=== PATIENT | male | born 1980 | race Caucasian/White ===

== ENCOUNTER 2019-01-27 20:34 | Emergency (ER) | payer SELFPAY ==
[2019-01-27 21:30] LABS: Absolute Lymphocytes (CBC) 2.6 K/uL (0.7-4.9); Absolute Monocytes 0.8 K/uL (0.1-1.3); Absolute Neutrophil 9.2 K/uL (1.8-8.0); Basophils % 0.6 % (0-1.3); Hematocrit 42.8 % (39.6-49.0); Lymphocytes % 20.2 % (15.3-44.8); MPV 9.5 fL (7.6-11.3); Monocytes % 6.1 % (3.3-12.3); RBC Red Blood Cell Count 4.83 M/uL (4.33-5.43)
[2019-01-27] MEDS ORDERED: ONDANSETRON 4 MG/2 ML VIAL ONE (21:31)
[2019-01-27] MEDS ORDERED: KETOROLAC 30 MG/ML INJ ONE (21:31)
[2019-01-27] MEDS ORDERED: NA CHLORIDE 0.9% 1,000 ML ONE (21:31)
[2019-01-27 21:53] LABS: Bilirubin Direct 0.1 mg/dL (0-0.2); Bilirubin Total 0.4 mg/dL (0.2-1.0); Potassium 3.5 mmol/L (3.5-5.1); Protein, Total 7.7 g/dL (6.4-8.2)
--- NOTE | 2019-01-27 22:39 | EDPHYS ---
Physician Documentation [facility] Name: Akira Miller Age: 39 yrs Sex: Male : 1980 Arrival Date: 01/27/2019 Time: 20:36 Bed 14 Private MD: ED Physician Stephane Leon HPI: 01/27 21:01 This 39 yrs old Male presents to ER via Wheelchair with complaints of Abdominal Pain. cp 21:01 The patient presents with abdominal pain right side. Onset: The symptoms/episode cp began/occurred suddenly, 3 hour(s) ago. The symptoms radiate to right back. Associated signs and symptoms: Pertinent positives: nausea, Pertinent negatives: blood in stools, chest pain, fever, testicular pain, vomiting. The symptoms are described as stabbing. Modifying factors: the symptoms are aggravated by pressure. Historical: - Allergies: 20:41 No Known Allergies; lp1 - Home Meds: 20:41 None [Active]; lp1 - PMHx: 20:41 None; lp1 - PSHx: 20:41 None; lp1 - Immunization history:: Adult Immunizations up to date. - Social history:: Smoking status: Patient uses tobacco products, smokes one pack cigarettes per day. - Ebola Screening: : No symptoms or risks identified at this time. ROS: 21:15 Constitutional: Negative for body aches, chills, fever, poor PO intake. cp 21:15 Eyes: Negative for injury, pain, redness, and discharge. cp 21:15 ENT: Negative for drainage from ear(s), ear pain, sore throat, difficulty swallowing, difficulty handling secretions. 21:15 Cardiovascular: Negative for chest pain, palpitations. 21:15 Respiratory: Negative for cough, shortness of breath, wheezing. 21:15 Abdomen/GI: Positive for abdominal pain, nausea, of the anterior aspect of right lateral abdomen and right lower quadrant, Negative for vomiting, diarrhea, constipation, black/tarry stool, rectal bleeding. 21:15 Back: Positive for radiated pain, Negative for injury or acute deformity, decreased range of motion. 21:15 : Negative for urinary symptoms, testicular pain 21:15 Skin: Negative for cellulitis, rash. 21:15 Neuro: Negative for altered mental status, headache, weakness. 21:15 All other systems are negative. Exam: 21:20 Constitutional: The patient appears in no acute distress, alert, awake, non-toxic, well cp developed, well nourished, uncomfortable. 21:20 Head/Face: Normocephalic, atraumatic. cp 21:20 Eyes: Periorbital structures: appear normal, Conjunctiva: normal, no exudate, no injection, Sclera: no appreciated abnormality, Lids and lashes: appear normal, bilaterally. 21:20 ENT: External ear(s): are unremarkable, Nose: is normal, Mouth: Lips: moist, Oral mucosa: pink and intact, moist, Posterior pharynx: is normal, airway is patent, no erythema, no exudate. 21:20 Chest/axilla: Inspection: normal, Palpation: is normal, no crepitus, no tenderness. 21:20 Cardiovascular: Rate: normal, Rhythm: regular. 21:20 Respiratory: the patient does not display signs of respiratory distress, Respirations: normal, no use of accessory muscles, no retractions, no splinting, no tachypnea, labored breathing, is not present, Breath sounds: are clear throughout, no decreased breath sounds, no stridor, no wheezing. 21:20 Abdomen/GI: Inspection: abdomen appears normal, Bowel sounds: active, all quadrants, Palpation: soft, in all quadrants, moderate abdominal tenderness, in the anterior aspect of right lateral abdomen and right lower quadrant, rebound tenderness, is not appreciated, involuntary guarding, is not appreciated. 21:20 Back: pain, that is moderate, of the right low back. 21:20 Skin: cellulitis, is not appreciated, no rash present. Vital Signs: 20:41 BP 176 / 108; Pulse 93; Resp 18; Temp 98.7(O); Pulse Ox 100% on R/A; Weight 90.72 kg; lp1 Height 5 ft. 9 in. (175.26 cm); Pain 10/10; 22:27 BP 131 / 83; Pulse 90; Resp 16 S; Pulse Ox 99% on R/A; jd3 20:41 Body Mass Index 29.54 (90.72 kg, 175.26 cm) lp1 MDM: 20:45 Patient medically screened. cp 22:35 Data reviewed: vital signs, nurses notes, lab test result(s), radiologic studies, CT cp scan. Response to treatment: the patient's symptoms have resolved after treatment, the patient's pain is gone, VSS. Patient sitting up in exam room and reports pain resolved. Will discharge to home. 01/27 21:02 Order name: Basic Metabolic Panel cp 01/27 21:02 Order name: CBC with Diff cp 01/27 21:02 Order name: Creatinine for Radiology; Complete Time: 22:18 cp 01/27 22:18 Interpretation: Reviewed. cp 01/27 21: Order name: Hepatic Function; Complete Time: 22:18 cp 01/27 21:02 Order name: Lipase; Complete Time: 22:18 cp 01/27 21:03 Order name: Basic Metabolic Panel; Complete Time: 22:18 EDMS 01/27 21:03 Order name: CBC with Automated Diff; Complete Time: 22:18 EDMS 01/27 21:15 Order name: CT Stone Protocol cp 01/27 21:02 Order name: IV Saline Lock; Complete Time: 21:25 cp 01/27 21:02 Order name: Labs collected and sent; Complete Time: 21:25 cp Administered Medications: 21:24 Drug: Zofran 4 mg Route: IVP; Site: right antecubital; jd3 22:20 Follow up: Response: No adverse reaction jd3 21:25 Drug: TORadol 30 mg Route: IVP; Site: right antecubital; jd3 22:25 Follow up: Response: No adverse reaction jd3 21:25 Drug: NS 0.9% 1000 ml Route: IV; Rate: 1 bolus; Site: right antecubital; jd3 22:25 Follow up: Response: No adverse reaction; IV Status: Completed infusion; IV Intake: jd3 1000ml 22:34 CANCELLED (Physician Discretion): Magnesium Sulfate 1 grams IVPB once over 30 mins cp 22:34 CANCELLED (Physician Discretion): Flomax 0.4 mg PO once cp 22:34 Not Given (Physician Discretion): Rocephin 1 grams IV at bolus once; Given slow IV push cp per pharmacy instructions 22:35 CANCELLED (Physician Discretion): Hydrocodone-Acetaminophen (7.5 mg-325 mg) 1 tabs PO cp once Disposition: 01/28 06:46 Co-signature as Attending Physician, Stephane Leon MD I agree with the assessment and reese plan of care. Disposition: 01/27/19 22:38 Discharged to Home. Impression: Calculus of kidney and ureter - right, resolved. - Condition is Stable. - Discharge Instructions: Kidney Stones. - Medication Reconciliation Form, Thank You Letter, Antibiotic Education, Prescription Opioid Use form. - Follow up: Rosas Hussein MD; When: 1 - 2 days; Reason: Worsening of condition. - Problem is new. - Symptoms are resolved. Signatures: Dispatcher [employer] EDMS Stephane Leon MD MD cha Pena, Laura RN RN lp1 Stephane Harris PA PA cp Davies, Jonathon RN RN jd3 Corrections: (The following items were deleted from the chart) 01/27 22:34 22:27 Magnesium Sulfate 1 grams IVPB once over 30 mins ordered. cp cp :34 22:27 Flomax 0.4 mg PO once ordered. cp cp 22:35 22:27 Hydrocodone-Acetaminophen (7.5 mg-325 mg) 1 tabs PO once ordered. cp cp 23:08 22:38 01/27/2019 22:38 Discharged to Home. Impression: Calculus of kidney and ureter - jd3 right, resolved. Condition is Stable. Forms are Medication Reconciliation Form, Thank You Letter, Antibiotic Education, Prescription Opioid Use. Follow up: Rosas Hussein; When: 1 - 2 days; Reason: Worsening of condition. Problem is new. Symptoms are resolved. cp
--- NOTE | 2019-01-27 22:39 | ER ---
Nurse's Notes [facility] Name: Akira Miller Age: 39 yrs Sex: Male : 1980 Arrival Date: 01/27/2019 Time: 20:36 Bed 14 Private MD: Diagnosis: Calculus of kidney and ureter-right, resolved Presentation: 01/27 20:40 Presenting complaint: Patient states: RLQ abdominal pain that began 3 hours ago, pain lp1 increasing; Patient states "it feels like something has popped"; States site tender to touch, nausea. Transition of care: patient was not received from another setting of care. Onset of symptoms was January 27, 2019 at 17:30. Risk Assessment: Do you want to hurt yourself or someone else? Patient reports no desire to harm self or others. Initial Sepsis Screen: Does the patient meet any 2 criteria? No. Patient's initial sepsis screen is negative. Does the patient have a suspected source of infection? No. Patient's initial sepsis screen is negative. Care prior to arrival: None. 20:40 Method Of Arrival: Wheelchair lp1 20:40 Acuity: DERICK 3 lp1 Triage Assessment: 20:42 General: Appears uncomfortable, Behavior is restless. Pain: Complains of pain in right lp1 lower quadrant Pain radiates to right low back. Historical: - Allergies: 20:41 No Known Allergies; lp1 - Home Meds: 20:41 None [Active]; lp1 - PMHx: 20:41 None; lp1 - PSHx: 20:41 None; lp1 - Immunization history:: Adult Immunizations up to date. - Social history:: Smoking status: Patient uses tobacco products, smokes one pack cigarettes per day. - Ebola Screening: : No symptoms or risks identified at this time. Screenin:32 Abuse screen: Denies threats or abuse. Nutritional screening: No deficits noted. jd3 Tuberculosis screening: No symptoms or risk factors identified. Fall Risk IV access (20 points). Ambulatory Aid- None/Bed Rest/Nurse Assist (0 pts). Gait- Normal/Bed Rest/Wheelchair (0 pts) Mental Status- Oriented to own ability (0 pts). Total Kebede Fall Scale indicates No Risk (0-24 pts). Assessment: 20:45 General: Appears in no apparent distress. uncomfortable, Behavior is calm, cooperative, jd3 appropriate for age. Pain: Complains of pain in posterior aspect of left lateral abdomen Quality of pain is described as aching, sharp. Neuro: Level of Consciousness is awake, alert, obeys commands, Oriented to person, place, time, situation, Appropriate for age. Cardiovascular: Capillary refill < 3 seconds Patient's skin is warm and dry. Respiratory: Airway is patent Respiratory effort is even, unlabored, Respiratory pattern is regular, symmetrical. GI: Abdomen is round Reports nausea. : Reports pain in left flank(s). EENT: No signs and/or symptoms were reported regarding the EENT system. Derm: Skin is intact, Skin is dry, Skin is normal, Skin temperature is warm. Musculoskeletal: Circulation, motion, and sensation intact. Range of motion: intact in all extremities. 21:51 Reassessment: Patient appears in no apparent distress at this time. Patient and/or jd3 family updated on plan of care and expected duration. Pain level reassessed. Patient is alert, oriented x 3, equal unlabored respirations, skin warm/dry/pink. Patient states feeling better. 22:33 Reassessment: Patient appears in no apparent distress at this time. Patient and/or jd3 family updated on plan of care and expected duration. Pain level reassessed. Patient is alert, oriented x 3, equal unlabored respirations, skin warm/dry/pink. Patient denies pain at this time. Patient states feeling better. 23:06 Reassessment: Patient appears in no apparent distress at this time. Patient and/or jd3 family updated on plan of care and expected duration. Pain level reassessed. Patient is alert, oriented x 3, equal unlabored respirations, skin warm/dry/pink. Vital Signs: 20:41 BP 176 / 108; Pulse 93; Resp 18; Temp 98.7(O); Pulse Ox 100% on R/A; Weight 90.72 kg; lp1 Height 5 ft. 9 in. (175.26 cm); Pain 10/10; 22:27 BP 131 / 83; Pulse 90; Resp 16 S; Pulse Ox 99% on R/A; jd3 20:41 Body Mass Index 29.54 (90.72 kg, 175.26 cm) lp1 ED Course: 20:36 Patient arrived in ED. am2 20:41 Triage completed. lp1 20:42 Arm band placed on left wrist. lp1 20:45 [facility]. cp 20:45 Stephane Leon MD is Attending Physician. cp 20:47 Guzman Cruz RN is Primary Nurse. jd3 20:51 Inserted saline lock: 20 gauge in right antecubital area, using aseptic technique. lp1 Blood collected. 21:26 CT completed. Patient tolerated procedure well. Patient moved to CT. Patient moved back nv from CT. 21:38 CT Stone Protocol In Process Unspecified. EDMS 22:33 Patient has correct armband on for positive identification. Call light in reach. Side jd3 rails up X 1. Side rails up X2. Adult w/ patient. 22:36 Rosas Hussein MD is Referral Physician. cp 23:06 No provider procedures requiring assistance completed. IV discontinued, intact, jd3 bleeding controlled, No redness/swelling at site. Pressure dressing applied. Administered Medications: 21:24 Drug: Zofran 4 mg Route: IVP; Site: right antecubital; jd3 22:20 Follow up: Response: No adverse reaction jd3 21:25 Drug: TORadol 30 mg Route: IVP; Site: right antecubital; jd3 22:25 Follow up: Response: No adverse reaction jd3 21:25 Drug: NS 0.9% 1000 ml Route: IV; Rate: 1 bolus; Site: right antecubital; jd3 22:25 Follow up: Response: No adverse reaction; IV Status: Completed infusion; IV Intake: jd3 1000ml 22:34 CANCELLED (Physician Discretion): Magnesium Sulfate 1 grams IVPB once over 30 mins cp 22:34 CANCELLED (Physician Discretion): Flomax 0.4 mg PO once cp 22:34 Not Given (Physician Discretion): Rocephin 1 grams IV at bolus once; Given slow IV push cp per pharmacy instructions 22:35 CANCELLED (Physician Discretion): Hydrocodone-Acetaminophen (7.5 mg-325 mg) 1 tabs PO cp once Intake: 22:25 IV: 1000ml; Total: 1000ml. jd3 Outcome: 22:38 Discharge ordered by MD. cp 23:06 Discharged to home ambulatory, with family. jd3 23:06 Condition: stable 23:06 Discharge instructions given to patient, family, Instructed on discharge instructions, follow up and referral plans. Demonstrated understanding of instructions, follow-up care. 23:08 Patient left the ED. jd3 Signatures: Dispatcher [employer] Lea Avalos RN RN lp1 Stephane Harris PA PA cp Jordan, Nathan nj Moreno, Amanda am2 Guzman Cruz RN RN jd3 Corrections: (The following items were deleted from the chart) 20:51 20:41 BP 176 / 108; Pulse 93bpm; Resp 18bpm; Pulse Ox 100% RA; 90.72 kg; Height 5 ft. 9 lp1 in.; BMI: 29.5; Pain 10/10; lp1
--- NOTE | 2019-01-28 09:58 | RAD REPORT ---
EXAM DESCRIPTION: CT - Stone Protocol - 01/27/2019 10:21 pm CLINICAL HISTORY: 39 years Male FLANK PAIN TECHNIQUE: Contiguous axial images obtained through the abdomen and pelvis without IV contrast. Co joon and sagittal reformatted images provided. This CT exam was performed according to our departmental dose-optimization program, which includes on e or more of the following dose reduction techniques: automated exposure control, adjustment of the m A and/or kV according to patient size, and/or use of iterative reconstruction technique. COMPARISON: No prior exams provided for comparison. FINDINGS: There is mild right hydroureteronephrosis due to a 3 mm calculus at the right vesicoureter al junction. There are punctate nonobstructing intrarenal calculi bilaterally. No other ureteral or b ladder calculi. No left-sided hydronephrosis. Steatosis of the liver without focal lesion on this noncontrast study. The lung bases, biliary tree, gallbladder, pancreas, spleen, adrenal glands, and urinary bladder are normal. There is no bowel inflammation, obstruction, free intraperitoneal air, or ascites. The appendix is normal. There is chronic bilateral spondylolysis at L5 with grade 1 anterolisthesis. No acute fracture. IMPRESSION: Mild right hydroureteronephrosis due to a 3 mm calculus at the right vesicoureteral junc tion. Bilateral nephrolithiasis. No other acute findings. Chronic bilateral spondylolysis at L5 with anterolisthesis. Electronically signed by: Isi Clifton MD 01/27/2019 9:50 PM CDT Due to temporary technical issues with the PACS/Fluency reporting system, reports are being signed by the in house radiologist as a courtesy to ensure prompt reporting. The interpreting radiologist is f parthaly responsible for the content of the report.
== END 2019-01-27 23:08 | disposition home or self-care (01) ==
LOC: ER 20:34
DX: N20.2 Calculus of kidney with calculus of ureter (principal); F17.210 Nicotine dependence, cigarettes, uncomplicated
CPT/HCPCS: 36415; 74176; 76377; 80048; 80076; 83690; 85025; 96361; 96374; 96375; 99284; J2405; J7030